=== PATIENT | male | born 1955 | race Caucasian/White ===

== ENCOUNTER 2017-03-18 17:28 | Emergency (ER) | payer BC ==
[2017-03-18] MEDS ORDERED: NS 0.9% 1000 ML* 1,000 ML IV ONE (18:15)
[2017-03-18] MEDS ORDERED: Morphine INJ* 4 MG/ML 1 ML CARPUJECT IV ONE (18:16)
[2017-03-18] MEDS ORDERED: Ondansetron INJ* 2 MG/ML VIAL IV ONE (18:16)
[2017-03-18 18:43] LABS: Hematocrit 45 % (42-52); Hemoglobin 15.7 g/dl (14.0-18.0); Mean Corpuscular HGB Conc 35 g/dl (31-36); Mean Corpuscular Hemoglobin 32 pg (27-31); Mean Corpuscular Volume 92 fL (80-94); Mean Platelet Volume 8 um3 (7.4-10.4); Platelet Count 208 10^3/ul (150-450); Red Blood Count 4.86 10^6/ul (4.0-5.4); Red Cell Distribution Width 13 % (10.5-15)
[2017-03-18 18:57] LABS: EGFR Non-African American 65.5 (>60); INR 0.87 (0.77-1.02)
--- NOTE | 2017-03-18 19:10 | RAD ---
INDICATION: Left knee and lower leg pain after skiing injury COMPARISON: None TECHNIQUE: 4 views of the left knee, 3 views of the left lower leg and 3 views of the ankle were obtained. FINDINGS: The bones of the knee are well-corticated and appropriately aligned. There is medial greater than lateral joint space loss. There is no large joint effusion. There is a spiral fracture of the distal left tibial metaphysis with approximately 1 cm of distraction at the fracture site. The fibula is intact. The ankle mortise is appropriately aligned. There are no definite fractures in the hindfoot. IMPRESSION: Minimally displaced spiral fracture of the distal metaphysis of the left tibia as described above.
[2017-03-18] MEDS ORDERED: HYDROcodone/ACETAMIN 5-325 MG* 1 TAB PO ONE (20:59)
[2017-03-18] MEDS ORDERED: O ndansetron ODT 4MG 2TAB PRPK 4 MG PAK PO ONE (20:59)
[2017-03-18] MEDS ORDERED: oxyCODONE/Acetamin 5/325 MG* TAB PO ONE (21:03)
[2017-03-18 21:43] VITALS: BP 141/88
--- NOTE | 2017-03-30 12:03 | ED ---
Rand Quinteros Gabriel, scribed for Enrique Gee MD on 03/18/17 at 1805 . Lower Extremity - HPI Summary HPI Summary: This patient is a 61 year old M presenting to [facility] s/p ski accident that occurred at 15:30. The patient was skiing and did not see a large rock due to snow coverage. He hit the rock throwing him forward and injuring his left tibia about 2[address] The patient rates the tibia pain 3/10 in severity. Patient reports some numbness on the direct area but none in the toes.Patient denies LOC, hip pain, and knee pain. Patient was able to bare weight but noticed his ankle was externally rotated when he felt like it was in a neutral position. Hx of broken fibula on the same leg. Denies use of blood thinners. - History of Current Complaint Chief Complaint: EDExtremityLower Stated Complaint: POSSIBLE BROKE FOOT Hx Obtained From: Patient Mechanism Of Injury: Fall From A Standing Position Onset of Pain: Immediate Onset/Duration: Hours - 2 Severity Initially: Mild Severity Currently: Mild Pain Intensity: 3 Pain Scale Used: 0-10 Numeric Timing: Constant Location: Is Discrete @ - left tibia Associated Signs And Symptoms: Positive: Negative - LOC, hip pain,, Other - some numbness over injured area. Negative: Knee Pain Aggravating Factor(s): Weight Bearing Able to Bear Weight: Yes - Allergies/Home Medications Allergies/Adverse Reactions: Allergies Allergy/AdvReac Type Severity Reaction Status Date / Time No Known Allergies Allergy Verified 03/18/17 17:58 PMH/Surg Hx/FS Hx/Imm Hx Endocrine/Hematology History: Denies: Hx Blood Transfusions, Hx Bone Marrow Disease, Hx Diabetes Cardiovascular History: Denies: Hx Atrial Fibrillation, Hx Auto Implanted Cardiovert Defib Respiratory History: Denies: Hx Chronic Obstructive Pulmonary Disease (COPD), Hx Lung Cancer GI History: Denies: Hx Gastrointestinal Bleed, Hx Hiatal Hernia Psychiatric History: Denies: Hx Attention Deficit Hyperactivity Disorder, Hx Autism - Surgical History Surgery Procedure, Year, and Place: bone shift to left ankle. wisdom teeth Infectious Disease History: No Infectious Disease History: Denies: Traveled Outside the [place] in Last 30 Days - Family History Known Family History: Negative: Renal Disease, Respiratory Disease, Seizure Disorder, Blood Disorder - Social History Occupation: Employed Full-time Lives: With Family Alcohol Use: Occasionally Substance Use Type: Reports: None Hx Tobacco Use: No Smoking Status (MU): Never Smoked Tobacco Review of Systems Negative: Fever, Chills Negative: Erythema Negative: Sore Throat Negative: Chest Pain Negative: Shortness Of Breath, Cough Negative: Abdominal Pain, Vomiting, Nausea Negative: dysuria, hematuria Musculoskeletal: Negative - L hip and L knee pain Positive: Other - pain at left tibia . Negative: Edema Negative: Rash Neurological: Negative - dizziness, LOC All Other Systems Reviewed And Are Negative: Yes Physical Exam - Summary Physical Exam Summary: Constitutional: Well-developed, Well-nourished, Alert. (-) Distressed Skin: Warm, Dry HENT: Normocephalic; Atraumatic Eyes: Conjunctiva normal Neck: Musculoskeletal ROM normal neck. (-) JVD, (-) Stridor, (-) Tracheal deviation Cardio: Rhythm regular, rate normal, Heart sounds normal; Intact distal pulses; The pedal pulses are 2+ and symmetric. Radial pulses are 2+ and symmetric. (-) Murmur Pulmonary/Chest wall: Effort normal. (-) Respiratory distress, (-) Wheezes, (-) Rales Abd: Soft, (-) Tenderness, (-) Distension, (-) Guarding, (-) Rebound Musculoskeletal: (-) Edema, tibia is mildly tender to palpation, Full rom of ankle, no ankle tenderness, No tenderness to the base of the 5th metatarsal, distal pulses intact Lymph: (-) Cervical adenopathy Neuro: Alert, Oriented x3 Psych: Mood and affect Normal Triage Information Reviewed: Yes Vital Signs On Initial Exam: Initial Vitals Temp Pulse Resp BP Pulse Ox 98.3 F 60 16 149/77 99 03/18/17 17:53 03/18/17 17:53 03/18/17 17:53 03/18/17 17:53 03/18/17 17:53 Vital Signs Reviewed: Yes Procedures - Procedure Summary Procedure Summary: Posterior split of left tibia using 43cm of 3 in ortho glass good pulses before and after - Splinting Location: left tibia Hand-Made Type: orthoglass Splint: sugar-tong Pre-Proc Neuro Vasc Exam: normal Post-Proc Neuro Vasc Exam: unchanged from pre-exam Diagnostics - Vital Signs Vital Signs Temp Pulse Resp BP Pulse Ox 03/18/17 17:53 98.3 F 60 16 149/77 99 - Laboratory Result Diagrams: 03/18/17 18:25 03/18/17 18:25 Lab Statement: Any lab studies that have been ordered have been reviewed, and results considered in the medical decision making process. - Radiology ankle Xray Radiology Interpretation Completed By: Radiologist - Minimally displaced spiral fracture of the distal metaphysis of the left tibia as described above. ED physician has reviewed this radiology report. knee xray Radiology Interpretation Completed By: Radiologist - Minimally displaced spiral fracture of the distal metaphysis of the left tibia as described above. ED physician has reviewed this radiology report. LE Xray Radiology Interpretation Completed By: Radiologist - Minimally displaced spiral fracture of the distal metaphysis of the left tibia as described above. ED physician has reviewed this radiology report. Re-Evaluation - Re-Evaluation First Eval Re-Evaluation Time: 19:00 Change: Unchanged Comment: Informed patient of xray results. Patient has elected not to have surgery tonight. Lower Extremity Course/Dx - Course Assessment/Plan: This patient is a 61 year old M presenting to [facility] s/p ski accident that occurred at 15:30. The patient was skiing and did not see a large rock due to snow coverage. He hit the rock throwing him forward and injuring his left tibia about 2[address] The patient rates the tibia pain 3/10 in severity. Patient reports some numbness on the direct area but none in the toes.Patient denies LOC, hip pain, and knee pain. Patient was able to bare weight but noticed his ankle was externally rotated when he felt like it was in a neutral position. Hx of broken fibula on the same leg. Denies use of blood thinners. Ankle XR reveals, per radiologist, Minimally displaced spiral fracture of the distal metaphysis of the left. tibia as described above. Knee XR reveals, per radiologist, Minimally displaced spiral fracture of the distal metaphysis of the left. tibia as described above. LE XR reveals, per radiologist, Minimally displaced spiral fracture of the distal metaphysis of the left. tibia as described above. Test results with no significant abnormalities. In the ED course the patient was given Zofran, morphine, IV fluids, and Percocet,. The patient has decided not to have surgery tonight and would rather wait until tomorrow. We discussed patient care with Dr. Jones and they recommended to splint the patient and he will see him in the morning. Patient will be discharged and follow up from Dr. Jones. The patient is agreeable with this plan. - Diagnoses Provider Diagnoses: Tibial fracture - Physician Notifications Discussed Care Of Patient With: Tu Dee Time Discussed With Above Provider: 19:25 Instructed by Provider To: Other - We discussed patient care with Dr. Jones and they recommended a sugar tong and to place the patient in a posterior splint. Additionally he will follow up with him tomorrow. Discharge - Discharge Plan Condition: Stable Disposition: HOME Patient Education Materials: Leg Fracture (ED) Referrals: Winifred Lima MD [Primary Care Provider] - Tu Dee MD [Medical Doctor] - 1 Day Additional Instructions: RETURN TO EMERGENCY DEPARTMENT FOR ANY NEW OR WORSENING SYMPTOMS The documentation as recorded by the Rand jean-baptiste Gabriel accurately reflects the service I personally performed and the decisions made by , Enrique Gee MD.
== END 2017-03-18 21:30 | disposition home or self-care (01) ==
LOC: ED 17:28
DX: S82.392A Other fracture of lower end of left tibia, initial encounter for closed fracture (principal); V00.321A Fall from snow-skis, initial encounter; Y93.23 Activity, snow (alpine) (downhill) skiing, snowboarding, sledding, tobogganing and snow tubing; Y92.9 Unspecified place or not applicable
CPT/HCPCS: 29515; 36415; 80053; 85027; 85610; 85730; 99284; A9270-GY; J2270; J2405

== ENCOUNTER 2017-03-29 11:55 | Day surgery (SDC) | payer BC ==
[~2017-03-29 11:55] MED LIST: Buffered Lidocaine 0.9% SYRIN* 5 ML/SYR SYRINGE INTRADERM ONE
[2017-03-29] MEDS ORDERED: ceFAZolin 2 GM in 100 MLS NS (*) BAG IVPB ONE (12:03)
[2017-03-29] MEDS ORDERED: Buffered Lidocaine 0.9% SYRIN* 5 ML/SYR SYRINGE ONE (12:03)
[2017-03-29] MEDS ORDERED: Midazolam* 1 MG/ML 2 ML VIAL (2 MG) ONE (12:58)
[2017-03-29] MEDS ORDERED: Propofol* 10 MG/ML 20 ML BTL IV PUSH ONE (12:58)
[2017-03-29] MEDS ORDERED: Dexamethasone IV* 4 MG/ML 1 ML (4 MG) ONE (12:58)
[2017-03-29] MEDS ORDERED: Atracurium* 10 MG/ML 10 ML VIAL ONE (12:58)
[2017-03-29] MEDS ORDERED: fentaNYL* 50 MCG/ML 2 ML VIAL (100 MCG VIAL) ONE ×4 (12:58→15:20)
[2017-03-29] MEDS ORDERED: Bupivacaine 0.5% SDV PF* 10-30ML VIAL ONE (13:01)
[2017-03-29] MEDS ORDERED: Lidocaine 2% W/EPI 1:100,000* 20 ML MDV ONE (13:02)
[2017-03-29] MEDS ORDERED: HYDROcodone/ACETAMIN 5-325 MG* 1 TAB PO PRN (14:11)
[2017-03-29] MEDS ORDERED: Ondansetron INJ* 2 MG/ML VIAL IV PRN (14:11)
[2017-03-29] MEDS ORDERED: Naloxone* 0.4 MG/ML 1 ML VIAL IV PRN (14:11)
[2017-03-29] MEDS ORDERED: DiMENhydriNATE IV* 50 MG/ML VIAL IV PUSH PRN (14:11)
[2017-03-29] MEDS ORDERED: Scopolamine 1.5 mg* PATCH TRANSDERM PRN (14:11)
[2017-03-29] MEDS ORDERED: HYDROmorphone INJ* 1 MG/ML CARPUJECT SYRINGE IV PRN (14:11)
[2017-03-29] MEDS ORDERED: Ondansetron INJ* 2 MG/ML VIAL ONE (14:27)
[2017-03-29] MEDS ORDERED: Ketorolac INJ* 30 MG/ML 1 ML VIAL ONE (14:27)
[2017-03-29] MEDS: fentaNYL* 50 MCG/ML 2 ML VIAL (100 MCG VIAL) IV PRN ×5 (15:01→15:27)
--- NOTE | 2017-03-29 15:11 | RAD ---
INDICATION: Left tibia closed reduction, ORIF, left tibial spiral fracture, S 82.241D COMPARISONS: April 25, 2017 TECHNIQUE: Fluoroscopy was provided for without. Total fluoroscopy time is: 15 seconds FINDINGS: Spot images demonstrate internal fixation of the tibia. IMPRESSION: FLUOROSCOPY WAS PROVIDED FOR A SURGICAL PROCEDURE CPT II Codes: 6045F
[2017-03-29] MEDS ORDERED: oxyCODONE/Acetamin 5/325 MG* TAB ONE ×2 (15:20→15:46)
[2017-03-29] MEDS: oxyCODONE/Acetamin 5/325 MG* TAB PO PRN ×2 (15:29→15:47)
[2017-03-29 15:58] VITALS: BP 138/81
--- NOTE | 2017-03-30 11:54 | OP ---
DATE OF OPERATION: 03/29/17 - [facility] DATE OF : 51 SURGEON: Tu Dee MD PNEUMATIC HOIST OPERATOR: OLGA Nielsen ANESTHESIOLOGIST: Sekou Jones MD ANESTHESIA: General endotracheal. PRE-OP DIAGNOSIS: Displaced left tibia fracture. POST-OP DIAGNOSIS: Displaced left tibia fracture. OPERATIVE PROCEDURE: ORIF, left tibia fracture. ESTIMATED BLOOD LOSS: Less than 25 cc. COMPLICATIONS: None. HARDWARE: Marcelo 4.5 LCD plate with 1 proximal locking screw and 1 lag screw. 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 He, unfortunately, had hit a rock at the bottom of the run and came to an instant stop. He felt and heard a snap in his left leg and could not bear weight on the leg. He did come to the emergency room that evening and x-rays found a mildly displaced tibia fracture. We had talked a bit about an ORIF at that point, but he had wanted to try and avoid surgery and his alignment was not that far off, I thought we could try to treat this conservatively. I had seen him a few days later and then in the office that next week where I had taken him out of varus and had gotten a better alignment to the fracture. He followed up yesterday and at that point though had shortened to approximately 13 mm. I thought this would not be acceptable and discussed with him that we could try a repeat closed reduction and if the fracture would mckinnon into place, we could probably try a closed treatment once again. If however I was unable to move the fracture because the tips of this fracture was incarcerated into his muscle, then we would need to do an ORIF to get a better alignment and get him out to length. Risks of surgery such as infection, scar formation, stiffness, and DVT were discussed and he was quite worried about the DVT. The plan that we came to is that we will start him with a one of the newer DVT medications in 2 days, so that he would not have as much of a DVT risk. DESCRIPTION OF PROCEDURE: The patient was brought to the OR and general endotracheal anesthesia was established. This way, we had good muscle relaxation. With my machine operator assistant holding counter traction and the knee bent to 90 degrees, traction was placed on the leg and not much was obtained. Next, I tried to recreate his fracture deformity and then use traction and come around and now I felt the bones grind with that maneuver. By the time C-arm came in and pictures were taken, he had not moved significantly or he had slipped and had fallen back into the same positioning. Therefore, I thought that this would need an ORIF to hold the bones in place for an acceptable position. I also had initially talked him a bit about a tibial naga, but my concern was that since I was unable to get an adequate reduction with closed methods considering that his fibula was not fractured, then I would still need to open the fracture site and if the fracture site was opened, I might as well put a plate rather than put in the naga and expose him to knee pain in addition to his fracture problems. Left leg was prepped and then draped. Skin about a centimeter lateral to the tip of the tibial spine was infiltrated using a mixture of 0.5% Marcaine and 2% lidocaine with epinephrine. Incision was made, centered about the fracture and carried proximally and distally for about 5 cm. Incision was carried down just through the skin and fascia of the compartment was immediately visible underneath. Compartment was opened and only a little bit of the hematoma was present. Fracture was almost immediately evident as well. I was able to maneuver with a freer to identify exactly where the fracture was and the distal portion of the tibia that had slid upwards was already stripped off periosteum. Proximally on the lateral side of the tibia, I was able to strip a little bit from that area and this also allowed exposure for the tip of the fracture to be exposed, so that I could disengage it from its muscle. This was disengaged, but he still did not move, as he was apparently still caught distally. Using the Acevedo and twisting, I was able to open the fracture site and maneuver the bone around, so that now he was freed up. Lion jaw was then used and essentially a perfect reduction was obtained. This was checked on C-arm. Lag screw was then placed and nice bite was obtained. Lag screw was also countersunk. A 5-hole 4.5 LCD plate was placed and this sat very nicely. I went with the 5-hole, as the 6- hole plate went further down, and with the curve of the flare of the distal tibia, this did not fit nicely, so I thought I was better off with the 5-hole plate. In standard AO fashion holes were drilled , measured, and screws were placed. A 5-0 locking screw was placed in the most proximal hole of the plate and all of the rest were 4.5 cortical screws. Final C-arm pictures were taken and saved. Wound was irrigated using a pulse lavage and the compartment was not repaired. Subcutaneous tissues were reapproximated with 2-0 Vicryl, skin was closed using latha. Sterile dressing and a sugar tong splint were applied in the OR. The patient was then extubated in the OR and was stable on transfer to the recovery room. 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 He tolerated the procedure well , there were no complications. He is here in the recovery room. Once he awakes a bit more from his anesthesia, can tolerate p.o., has his pain well controlled and can void, he will be discharged home. Prescription for [place] will be e-scribed in. He would go with aspirin for tonight and tomorrow and we will set him up with a script for one of the newer anticoagulants such as Eliquis or Xarelto. I would like to see him in the office in approximately 10 days, remove his latha and we will switch him to a boot at that point. We may let him touch down for weight bearing, but not truly ambulate. If there are any problems in the meanwhile or if anything odd should occur, there are instructions to give the office a call. [id number]/[facility] #: [id number] NOHEMI
[2017-04-01] MEDS ORDERED: Scopolamine PATCH Remove* 1 NOTE MISC PATCH OFF ONE (14:12)
== END 2017-03-29 16:15 | disposition home or self-care (01) ==
LOC: OR 11:55
PROVIDERS: ATTEND Orthopaedic Surgery
DX: S82.241D Displaced spiral fracture of shaft of right tibia, subsequent encounter for closed fracture with routine healing (principal); W22.8XXD Striking against or struck by other objects, subsequent encounter; Y93.23 Activity, snow (alpine) (downhill) skiing, snowboarding, sledding, tobogganing and snow tubing; Y92.89 Other specified places as the place of occurrence of the external cause
CPT/HCPCS: 76000; A9270-GY; C1713; C1776; J1100; J1885; J2250; J2405; J2704; J3010